=== PATIENT | female | born 1995 | race Hispanic/Latino ===

== ENCOUNTER 2018-09-30 18:32 | Emergency (ER) | payer BC, MEDICAID ==
--- NOTE | 2018-09-30 19:02 | Emergency Department Report ---
Blank Doc - Documentation Documentation: Hx/o autism right flank pain times 3 days. Hx/o depression ADAD ,bipolar, ocd .
[2018-09-30] MEDS ORDERED: NACL 0.9% 1000 ML 1,000 ML IV ONE (19:45)
[2018-09-30] MEDS ORDERED: MORPHINE IV ONE (19:46)
[2018-09-30] MEDS ORDERED: ZOFRAN IV ONE (19:46)
[2018-09-30 20:21] LABS: Basophils % (Auto) 0.2 % (0.0-1.8); Eosinophils % (Auto) 0.2 % (0.0-4.3); Hematocrit 36.9 % (30.3-42.9); Hemoglobin 12.5 gm/dl (10.1-14.3); Lymphocytes # (Auto) 1.5 K/mm3 (1.2-5.4); Lymphocytes % (Auto) 17.1 % (13.4-35.0); Mean Corpuscular HGB Conc 34 % (30-34); Mean Corpuscular Volume 87 fl (79-97); Monocytes # (Auto) 1.3 K/mm3 (0.0-0.8); Monocytes % (Auto) 14.9 % (0.0-7.3); Platelet Count 175 K/mm3 (140-440); Red Blood Count 4.24 M/mm3 (3.65-5.03); Red Cell Distribution Width 14.2 % (13.2-15.2)
[2018-09-30 20:42] LABS: Alanine Aminotransferase 8 units/L (7-56); Albumin 3.8 g/dL (3.9-5); BUN/Creatinine Ratio 10; Blood Urea Nitrogen 9 mg/dL (7-17); Calcium 9.6 mg/dL (8.4-10.2); Hemolysis Index 74
[2018-09-30 22:19] LABS: Bilirubin,Urine NEG (Negative); Blood,Urine SM (Negative); Color,Urine Yellow (Yellow); Mucus,Urine FEW /HPF
[2018-09-30 22:22] LABS: HCG Qualitative,Urine Negative (Negative)
[2018-09-30] MEDS ORDERED: TORADOL IV ONE (22:32)
--- NOTE | 2018-09-30 23:41 | Cat Scan Report ---
PROCEDURE: CT ABDOMEN PELVIS W CON TECHNIQUE: Computerized axial tomography of the abdomen and pelvis was performed without intravenous contrast. This study is performed without intravascular contrast material and its sensitivity for ab dominal and pelvic pathology, including neoplasms, inflammation, abscess, free fluid, thrombosis, art erial dissection and infarction, is reduced compared with a contrast enhanced study. CT DOSE LENGTH PRODUCT: 572.4 mGycm HISTORY: Abdominal pain COMPARISONS: None . FINDINGS: Lower Lung root: No focal abnormalities seen. Upper Abdomen: The liver, gallbladder, the adrenal glands, the pancreas and spleen are unremarkable. Kidneys, Ureters and Urinary bladder: There is moderate right-sided hydronephrosis secondary to a ca lculus in the proximal third of the right ureter measuring 3.3 x 3.3 mm seen on axial image 98 series 2, coronal reconstruction image 63 series 602. The obstruction appears to be fairly high-grade. Ther e is mild decreased enhancement of the right kidney compared to the left kidney. There is a small gera unt of fluid in the right perinephric space. The kidneys, the ureters and urinary bladder otherwise a re unremarkable. Retroperitoneum: Abdominal aorta appears normal. Nonspecific subcentimeter lymph nodes are seen in the retroperitoneum. No pathologically enlarged ly mph nodes are identified. Bowel: No focal bowel loop abnormalities are seen. No evidence of bowel obstruction. Normal-appearin g appendix is seen in the right lower quadrant. There is no free intraperitoneal gas. Small amount of nonspecific free fluid is present in the cul-de-sac. Reproductive organs: Uterus is deviated to the right of midline. No abnormal adnexal masses are iden tified. Other: No acute bone abnormalities are seen. IMPRESSION: Moderate right-sided hydronephrosis secondary to a calculus in the proximal third of the right ureter as described. Please see above comments. Small amount of nonspecific free fluid is seen in the cul-de-sac. This document is electronically signed by Roby Arnold MD., Sep 30 2018 11:39:34 PM ET
[2018-10-01] MEDS ORDERED: FLOMAX PO ONE (00:27)
--- NOTE | 2018-10-01 00:33 | Emergency Department Report ---
ED Abdominal Pain HPI - General Chief Complaint: Abdominal Pain Stated Complaint: NAUSEA/VOMITTING/POSS KIDNEY STONES Time Seen by Provider: 09/30/18 20:35 Source: patient Mode of arrival: Wheelchair Limitations: No Limitations - History of Present Illness Initial Comments: Patient is a 23-year-old white female with a history of autism, bipolar disorder and depression who presents to the ED with complaint of acute onset persistent severe right flank pain that radiates to the suprapubic area with nausea and vomiting for the last 3 days. Patient states that she has not been able to keep anything down due to intractable nausea and vomiting. Patient also complains of intermittent hematuria with urinary frequency and urgency. Patient denies fever, chills, vaginal bleeding, diarrhea, low back pain, dizziness, chest pain, headache, vaginal discharge, or shortness of breath. MD Complaint: abdominal pain, flank pain (RIGHT), other (Nausea and vomiting) -: Sudden, days(s) (3) Location: suprapubic, R flank Radiation: suprapubic, R flank Migration to: RLQ, suprapubic, R flank Severity: severe Severity scale (0 -10): 8 Quality: cramping, stabbing, sharp Consistency: constant Improves With: nothing Worsens With: nothing Context: other (Spontaneous) Associated Symptoms: nausea, vomiting, hematuria, anorexia. denies: diarrhea, fever, chills, constipation, dysuria, hematemesis, hematochezia, syncope Treatments Prior to Arrival: NSAIDs - Related Data LMP Date: 09/08/18 Previous Rx's Medication Instructions Recorded Last Taken Type HYDROcodone/APAP 5-325 [[place] 1 each PO Q6HR PRN #12 tablet 10/01/18 Unknown Rx 5/325] Ketorolac [Toradol] 10 mg PO Q8H PRN #20 tablet 10/01/18 Unknown Rx Ondansetron [Zofran Odt] 4 mg PO Q6HR #20 tab.rapdis 10/01/18 Unknown Rx Tamsulosin [Flomax] 0.4 mg PO QDAY #7 cap 10/01/18 Unknown Rx Allergies Allergy/AdvReac Type Severity Reaction Status Date / Time No Known Allergies Allergy Verified 09/30/18 18:34 ED Review of Systems ROS: Stated complaint: NAUSEA/VOMITTING/POSS KIDNEY STONES Other details as noted in HPI Comment: All other systems reviewed and negative Constitutional: no symptoms reported, see HPI, malaise. denies: chills, diapho resis, fever Eyes: as per HPI. denies: eye pain, eye discharge, vision change ENT: as per HPI. denies: ear pain, throat pain, dental pain, hearing loss Respiratory: no symptoms reported, see HPI. denies: cough, shortness of breath, wheezing Cardiovascular: as per HPI. denies: chest pain, palpitations, syncope Endocrine: no symptoms reported, see HPI. denies: excessive sweating, flushing, increased hunger, increased thirst Gastrointestinal: as per HPI, abdominal pain, nausea, vomiting. denies: diarrhea, hematochezia Genitourinary: as per HPI, urgency, frequency, hematuria. denies: dysuria, discharge, abnormal menses, dyspareunia Musculoskeletal: as per HPI. denies: back pain, joint swelling, arthralgia, myalgia Skin: as per HPI. denies: rash, lesions, change in color Neurological: as per HPI. denies: headache, numbness, paresthesias, confusion, vertigo Psychiatric: as per HPI, anxiety Hematological/Lymphatic: as per HPI ED Past Medical Hx - Past Medical History Hx Psychiatric Treatment: Yes Additional medical history: bipolar. autism. ADHD. OCD - Surgical History Additional Surgical History: partial spleenectomy (tumor). left index surgery - Social History Smoking Status: Never Smoker Substance Use Type: None - Medications Home Medications: Home Medications Medication Instructions Recorded Confirmed Last Taken Type HYDROcodone/APAP 5-325 [[place] 1 each PO Q6HR PRN #12 tablet 10/01/18 Unknown Rx 5/325] Ketorolac [Toradol] 10 mg PO Q8H PRN #20 tablet 10/01/18 Unknown Rx Ondansetron [Zofran Odt] 4 mg PO Q6HR #20 tab.rapdis 10/01/18 Unknown Rx Tamsulosin [Flomax] 0.4 mg PO QDAY #7 cap 10/01/18 Unknown Rx ED Physical Exam - General Limitations: No Limitations General appearance: alert, in no apparent distress - Head Head exam: Present: atraumatic, normocephalic, normal inspection - Eye Eye exam: Present: normal appearance, PERRL, EOMI Pupils: Present: normal accommodation - ENT ENT exam: Present: normal exam, mucous membranes dry, mucous membranes moist, TM's normal bilaterally, normal external ear exam - Neck Neck exam: Present: normal inspection, full ROM - Respiratory Respiratory exam: Present: normal lung sounds bilaterally. Absent: respiratory distress, wheezes, rales, chest wall tenderness, accessory muscle use - Cardiovascular Cardiovascular Exam: Present: regular rate, bradycardia, normal heart sounds - GI/Abdominal GI/Abdominal exam: Present: soft, tenderness (Right flank and RLQ area), normal bowel sounds. Absent: distended, guarding, rebound, diminished bowel sounds - Rectal Rectal exam: Present: deferred - Extremities Exam Extremities exam: Present: normal inspection, full ROM, normal capillary refill - Back Exam Back exam: Present: normal inspection. Absent: full ROM, tenderness, CVA tenderness (R), CVA tenderness (L), paraspinal tenderness - Neurological Exam Neurological exam: Present: alert, oriented X3, CN II-XII intact, normal gait, reflexes normal - Psychiatric Psychiatric exam: Present: normal affect - Skin Skin exam: Present: warm, dry, intact, normal color ED Course Vital Signs 09/30/18 09/30/18 20:14 23:27 Temperature 98.1 F Pulse Rate 52 L Respiratory 18 18 Rate Blood Pressure 128/69 O2 Sat by Pulse 99 Oximetry - Reevaluation(s) Reevaluation #1: 10/01/18 00:02 Patient had presented to the ED with complaint of acute onset right flank pain with nausea and vomiting for 3 days. Labs are drawn and patient was treated for pain and nausea and vomiting. Patient received normal saline 1 L IV bolus 1. Abdominal and pelvis CT scan with contrast was also ordered. On reevaluation, patient's pain is well controlled on medications. Lab test results were reviewed and are unremarkable. Abdominal and pelvis CT scan with contrast shows a 3 mm kidney stone on the right proximal UVJ. Patient was treated in the ED with Flomax and patient discharged home with pain medications, antiemetics, Flomax and given a referral to the urologist senior clinical consultant Dr. Gee for follow-up in 3-5 days ED Medical Decision Making - Lab Data Result diagrams: 09/30/18 19:56 09/30/18 19:56 - Radiology Data Radiology results: report reviewed, image reviewed ' 3 mm Kidney stones on proximal right UVJ - Medical Decision Making Patient presented to the ED with complaint of acute onset persistent right flank pain with nausea and vomiting for 3 days. On presentation, labs are drawn and the patient for pain and nausea and vomiting. Abdomen pelvis CT scan with contrast was also ordered. The patient also received normal saline 1 L IV bolus while in the ED. On reevaluation, patient's pain is well controlled. Lab test results were reviewed and are unremarkable including urinalysis. Abdomen p juan manuel CT scan with contrast shows a 3 mm kidney stone in proximal right UVJ. Patient was discharged home on pain medications and Flomax, and referred to the urologist senior clinical consultant Dr. Gee for follow-up in 3-5 days. Patient was advised to return to the ED immediately if symptoms get worse. - Differential Diagnosis Kidney stones, Acute UTI, acute appendicitis, pyelonephnrephritis Critical care attestation.: If time is entered above; I have spent that time in minutes in the direct care of this critically ill patient, excluding procedure time. ED Disposition Clinical Impression: Acute abdominal pain in right flank, Nausea and vomiting in adult, Kidney stone on right side Disposition: TO HOME OR SELFCARE Is pt being admited?: No Does the pt Need Aspirin: No Condition: Stable Instructions: Kidney Stones (ED), Flank Pain (ED), Acute Nausea and Vomiting (ED) Additional Instructions: Take Medications with food, drink plenty of fluids and follow-up with Dr. Gee as advised. Return to the ED immediately if symptoms get worse. Prescriptions: Tamsulosin [Flomax] 0.4 mg PO QDAY #7 cap HYDROcodone/APAP 5-325 [[place] 5/325] 1 each PO Q6HR PRN #12 tablet PRN Reason: Pain Ketorolac [Toradol] 10 mg PO Q8H PRN #20 tablet PRN Reason: Pain Ondansetron [Zofran Odt] 4 mg PO Q6HR #20 tab.rapdis Referrals: URBAN MARTINEZ MD [Primary Care Provider] - 3-5 Days CARTER GEE MD [Staff Physician] - 3-5 Days Time of Disposition: 00:54 Print Language: WELSH
[2018-10-01 01:22] VITALS: BP 98/53
== END 2018-10-01 01:05 | disposition home or self-care (01) ==
LOC: ED 18:32
DX: N20.0 Calculus of kidney (principal); R10.31 Right lower quadrant pain; R11.2 Nausea with vomiting, unspecified; Z90.81 Acquired absence of spleen
CPT/HCPCS: 36415; 74177; 80053; 81001; 81025; 83690; 85025; 96361; 96374; 96375; 99284; J1885; J2270; J2405; J7030; Q9967

== ENCOUNTER 2019-01-09 12:26 | Emergency (ER) | payer BC, MEDICAID ==
[2019-01-09] MEDS ORDERED: PROTONIX IV ONE (12:47)
[2019-01-09] MEDS ORDERED: NACL 0.9% 1000 ML 1,000 ML IV ONE (12:47)
[2019-01-09] MEDS ORDERED: MORPHINE IV ONE (12:47)
[2019-01-09] MEDS ORDERED: ZOFRAN IV ONE (12:48)
--- NOTE | 2019-01-09 12:54 | Emergency Department Report ---
ED Abdominal Pain HPI - General Chief Complaint: Chest Pain Stated Complaint: CHEST PAIN, N/V Time Seen by Provider: 01/09/19 12:39 Source: patient, family, EMS Mode of arrival: Stretcher Limitations: No Limitations - History of Present Illness Initial Comments: This is a 23-year-old female with a history of schizoaffective and bipolar disorder complaining of vomiting and abdominal pain. She states the pain was sharp, started yesterday. It is persistent. It is nonradiating. In the epigastric area and somewhat in the subxiphoid region. It does not radiate and is midline. Patient states that she has a history of a splenectomy for a "tumor". She denies any serious or life-threatening infections in the past. She denies any other surgery. She presents here with her mother. MD Complaint: abdominal pain -: Gradual, days(s) Location: epigastric Radiation: none Migration to: no migration Severity: moderate Quality: sharp Consistency: constant Improves With: nothing Worsens With: nothing Associated Symptoms: nausea, vomiting (vomited material that looked like a "soft drink".). denies: melena, hematuria - Related Data Previous Rx's Medication Instructions Recorded Last Taken Type HYDROcodone/APAP 5-325 [[place] 1 each PO Q6HR PRN #12 tablet 10/01/18 Unknown Rx 5/325] Ketorolac [Toradol] 10 mg PO Q8H PRN #20 tablet 10/01/18 Unknown Rx Ondansetron [Zofran Odt] 4 mg PO Q6HR #20 tab.rapdis 10/01/18 Unknown Rx Tamsulosin [Flomax] 0.4 mg PO QDAY #7 cap 10/01/18 Unknown Rx Lansoprazole [Prevacid] 15 mg PO BID #60 cap 01/09/19 Unknown Rx Allergies Allergy/AdvReac Type Severity Reaction Status Date / Time No Known Allergies Allergy Verified 01/09/19 12:43 ED Review of Systems ROS: Stated complaint: CHEST PAIN, N/V Other details as noted in HPI Constitutional: denies: chills, fever Eyes: denies: eye pain, eye discharge, vision change ENT: denies: ear pain, throat pain Respiratory: denies: cough, shortness of breath, wheezing Cardiovascular: denies: chest pain, palpitations Endocrine: no symptoms reported Gastrointestinal: abdominal pain, nausea, vomiting. denies: diarrhea Genitourinary: denies: urgency, dysuria, discharge Musculoskeletal: denies: back pain, joint swelling, arthralgia Skin: denies: rash, lesions Neurological: denies: headache, weakness, paresthesias Psychiatric: denies: anxiety, depression Hematological/Lymphatic: denies: easy bleeding, easy bruising ED Past Medical Hx - Past Medical History Hx Psychiatric Treatment: Yes Additional medical history: bipolar. autism. ADHD. OCD - Surgical History Additional Surgical History: partial spleenectomy (tumor). left index surgery - Social History Smoking Status: Never Smoker Substance Use Type: None - Medications Home Medications: Home Medications Medication Instructions Recorded Confirmed Last Taken Type HYDROcodone/APAP 5-325 [[place] 1 each PO Q6HR PRN #12 tablet 10/01/18 Unknown Rx 5/325] Ketorolac [Toradol] 10 mg PO Q8H PRN #20 tablet 10/01/18 Unknown Rx Ondansetron [Zofran Odt] 4 mg PO Q6HR #20 tab.rapdis 10/01/18 Unknown Rx Tamsulosin [Flomax] 0.4 mg PO QDAY #7 cap 10/01/18 Unknown Rx Lansoprazole [Prevacid] 15 mg PO BID #60 cap 01/09/19 Unknown Rx ED Physical Exam - General Limitations: No Limitations General appearance: alert, in no apparent distress - Head Head exam: Present: atraumatic, normocephalic - Eye Eye exam: Present: normal appearance. Absent: scleral icterus - ENT ENT exam: Present: mucous membranes moist - Neck Neck exam: Present: normal inspection. Absent: tenderness, meningismus - Respiratory Respiratory exam: Present: normal lung sounds bilaterally. Absent: respiratory distress - Cardiovascular Cardiovascular Exam: Present: regular rate, normal rhythm. Absent: systolic murmur, diastolic murmur, rubs, gallop - GI/Abdominal GI/Abdominal exam: Present: soft, normal bowel sounds. Absent: distended, tenderness, guarding, rebound, rigid - Extremities Exam Extremities exam: Present: normal inspection - Back Exam Back exam: Present: normal inspection - Neurological Exam Neurological exam: Present: alert, oriented X3, CN II-XII intact. Absent: motor sensory deficit - Psychiatric Psychiatric exam: Present: agitated, anxious - Skin Skin exam: Present: warm, dry, intact, normal color. Absent: rash ED Course Vital Signs 01/09/19 01/09/19 01/09/19 12:30 12:32 12:45 Temperature 98.7 F Pulse Rate 67 64 78 Respiratory 15 18 21 Rate Blood Pressure 116/83 Blood Pressure 116/83 [Left] O2 Sat by Pulse 100 100 100 Oximetry 01/09/19 13:00 Temperature Pulse Rate 67 Respiratory 23 Rate Blood Pressure 120/79 Blood Pressure [Left] O2 Sat by Pulse 100 Oximetry - Reevaluation(s) Reevaluation #1: Patient improved. Patient looks well. Laboratory database is essentially within normal limits. She will be placed on a proton inhibitor and refer her to GI. 01/09/19 13:57 ED Medical Decision Making - Lab Data Result diagrams: 01/09/19 12:53 01/09/19 12:53 Critical care attestation.: If time is entered above; I have spent that time in minutes in the direct care of this critically ill patient, excluding procedure time. ED Disposition Clinical Impression: Abdominal pain Qualifiers: Abdominal location: upper abdomen, unspecified Qualified Code(s): R10.10 - Upper abdominal pain, unspecified Gastritis Qualifiers: Gastritis type: unspecified gastritis Chronicity: acute Gastritis bleeding: presence of bleeding unspecified Qualified Code(s): K29.00 - Acute gastritis without bleeding Disposition: DC-01 TO HOME OR SELFCARE Is pt being admited?: No Does the pt Need Aspirin: No Condition: Stable Instructions: Acute Abdominal Pain (ED), Gastritis (ED) Additional Instructions: Avoid stomach irritants. Further evaluation with a GI specialist as recommended. Rx lansoprazole. Prescriptions: Lansoprazole [Prevacid] 15 mg PO BID #60 cap Referrals: URBAN MARTINEZ MD [Primary Care Provider] - 3-5 Days [facility] [Provider Group] - 3-5 Days Time of Disposition: 13:58
[2019-01-09 13:22] LABS: Basophils % (Auto) 0.4 % (0.0-1.8); Eosinophils % (Auto) 0.1 % (0.0-4.3); Hematocrit 36.5 % (30.3-42.9); Hemoglobin 12.3 gm/dl (10.1-14.3); Lymphocytes # (Auto) 0.9 K/mm3 (1.2-5.4); Lymphocytes % (Auto) 12.7 % (13.4-35.0); Mean Corpuscular HGB Conc 34 % (30-34); Mean Corpuscular Volume 84 fl (79-97); Monocytes # (Auto) 0.6 K/mm3 (0.0-0.8); Monocytes % (Auto) 9.1 % (0.0-7.3); Platelet Count 282 K/mm3 (140-440); Red Blood Count 4.38 M/mm3 (3.65-5.03); Red Cell Distribution Width 15.3 % (13.2-15.2)
[2019-01-09 13:34] LABS: Alanine Aminotransferase 13 units/L (7-56); Albumin 4.2 g/dL (3.9-5); BUN/Creatinine Ratio 30; Blood Urea Nitrogen 12 mg/dL (7-17); Calcium 9.3 mg/dL (8.4-10.2); Hemolysis Index 5
[2019-01-09 13:36] LABS: Bilirubin,Direct < 0.2 mg/dL (0-0.2)
[2019-01-09 13:39] LABS: INR 1.05 (0.87-1.13)
[2019-01-09] MEDS ORDERED: MORPHINE ONE (13:41)
[2019-01-09 13:56] LABS: Bilirubin,Urine NEG (Negative); Blood,Urine NEG (Negative); Color,Urine Yellow (Yellow); Mucus,Urine 3+ /HPF
[2019-01-09 14:46] VITALS: BP 114/76
== END 2019-01-09 14:54 | disposition home or self-care (01) ==
LOC: ED 12:26
DX: K29.70 Gastritis, unspecified, without bleeding (principal); F31.9 Bipolar disorder, unspecified; F25.9 Schizoaffective disorder, unspecified; F90.9 Attention-deficit hyperactivity disorder, unspecified type; F84.0 Autistic disorder; Z90.81 Acquired absence of spleen; Z79.899 Other long term (current) drug therapy
CPT/HCPCS: 36415; 80048; 80076; 81001; 83690; 84703; 85025; 85610; 93005; 93010; 96374; 96375; 99284; C9113; J2270; J2405; J7030

== ENCOUNTER 2019-04-13 00:45 | Emergency (ER) | payer BC, MEDICAID ==
[2019-04-13] MEDS ORDERED: HYDROcodone/ACETAMINOPHEN 5-325 MG TAB ONE (02:20)
[2019-04-13] MEDS ORDERED: predniSONE 20 MG TAB ONE (02:20)
[2019-04-13] MEDS ORDERED: IBUPROFEN 400 MG TAB PO ONE (02:20)
[2019-04-13] MEDS ORDERED: LIDOCAINE-MPF (1%) 10 MG/1 ML VIAL 5 ML ONE (02:20)
[2019-04-13] MEDS ORDERED: CLINDAMYCIN 300 MG CAP ONE (02:32)
--- NOTE | 2019-04-13 03:59 | Emergency Department Report ---
ED General Adult HPI - General Chief complaint: Skin/Abscess/Foreign Body Stated complaint: right cheek swollen painful erythematous rash Source: patient, family (mother) Mode of arrival: Ambulatory Limitations: No Limitations - History of Present Illness Initial comments: Patient is a 23-year-old white female with a history of chronic depression, bipolar disorder and asthma presents to the ED with complaint of acute onset persistent painful swollen erythematous maculopapular rash on right cheek for the last 5 days. Patient also complains of painful swollen right mandibular gums with premolar and molar toothaches for the last 2 weeks. Patient states that she completed a course of oral antibiotics, amoxicillin about 7 days ago for the dental abscess. Patient states that her pain has worsened in the last 5 days. Patient denies fever, chills, nausea, vomiting, dizziness, headache, chest pain, shortness of breath, sore throat, cough or nasal and sinus congestion and change in vision. MD Complaint: right cheek abscess; dental and jaw pain -: Sudden, week(s) (2) Location: face (right cheek), mouth (right premolar and molar toothache with swollen gums) Radiation: non-radiation Quality: aching, sharp, constant Consistency: constant Improves with: none Worsens with: eating Associated Symptoms: denies other symptoms, loss of appetite, malaise. denies: confusion, chest pain, cough, diaphoresis, fever/chills, headaches, nausea/vomiting, rash, seizure, shortness of breath, syncope, weakness, other Treatments Prior to Arrival: NSAID - Related Data Home Medications Medication Instructions Recorded Confirmed Last Taken Abilify 20 mg PO QAM 01/09/19 01/09/19 01/08/19 Cetirizine HCl [Zyrtec 10mg tab] 10 mg PO DAILY 01/09/19 01/09/19 01/08/19 Sertraline [Zoloft] 50 mg PO QDAY 01/09/19 01/09/19 01/08/19 Singulair 10 mg PO DAILY 01/09/19 01/09/19 01/08/19 Synthroid 50 mg PO QHS 01/09/19 01/09/19 01/08/19 traZODone [Desyrel] 100 mg PO QHS PRN 01/09/19 01/09/19 01/08/19 Previous Rx's Medication Instructions Recorded Last Taken Type Acetaminophen/Codeine [Tylenol 1 tab PO Q6H PRN #12 tab 04/13/19 Unknown Rx /Codeine # 3 tab] Clindamycin [Clindamycin CAP] 300 mg PO Q6HR #80 capsule 04/13/19 Unknown Rx Ketorolac [Toradol] 10 mg PO Q8H PRN #20 tablet 04/13/19 Unknown Rx Ondansetron [Zofran Odt] 4 mg PO Q6HR PRN #15 tab.rapdis 04/13/19 Unknown Rx Allergies Allergy/AdvReac Type Severity Reaction Status Date / Time No Known Allergies Allergy Verified 01/09/19 12:43 ED Review of Systems ROS: Stated complaint: Other details as noted in HPI Constitutional: denies: chills, fever Eyes: denies: eye pain, eye discharge, vision change ENT: dental pain, other (swollen right mandibular gums with pain). denies: ear pain, throat pain Respiratory: denies: cough, orthopnea, shortness of breath, SOB with exertion, SOB at rest, wheezing Cardiovascular: denies: chest pain, palpitations Endocrine: no symptoms reported Gastrointestinal: denies: abdominal pain, nausea, vomiting, diarrhea Genitourinary: denies: urgency, dysuria, discharge Musculoskeletal: denies: back pain, joint swelling, arthralgia Skin: rash (swollen erythematous painful rash on right cheek). denies: lesions Neurological: denies: headache, weakness, paresthesias Psychiatric: denies: anxiety, depression Hematological/Lymphatic: denies: easy bleeding, easy bruising ED Past Medical Hx - Past Medical History Hx Psychiatric Treatment: Yes Additional medical history: Bipolar. autism. ADHD. OCD. MDD. Anxiety. Hyperparathyroidism. ODD - Surgical History Additional Surgical History: partial spleenectomy (tumor) at age 4. left index surgery - Social History Smoking Status: Never Smoker Substance Use Type: None - Medications Home Medications: Home Medications Medication Instructions Recorded Confirmed Last Taken Type Abilify 20 mg PO QAM 01/09/19 01/09/19 01/08/19 History Cetirizine HCl [Zyrtec 10mg tab] 10 mg PO DAILY 01/09/19 01/09/19 01/08/19 History Sertraline [Zoloft] 50 mg PO QDAY 01/09/19 01/09/1901/08/19 History Singulair 10 mg PO DAILY 01/09/19 01/09/19 01/08/19 History Synthroid 50 mg PO QHS 01/09/19 01/09/19 01/08/19 History traZODone [Desyrel] 100 mg PO QHS PRN 01/09/19 01/09/19 01/08/19 History Acetaminophen/Codeine [Tylenol 1 tab PO Q6H PRN #12 tab 04/13/19 Unknown Rx /Codeine # 3 tab] Clindamycin [Clindamycin CAP] 300 mg PO Q6HR #80 capsule 04/13/19 Unknown Rx Ketorolac [Toradol] 10 mg PO Q8H PRN #20 tablet 04/13/19 Unknown Rx Ondansetron [Zofran Odt] 4 mg PO Q6HR PRN #15 tab.rapdis 04/13/19 Unknown Rx ED Physical Exam - General General appearance: alert, in no apparent distress - Head Head exam: Present: atraumatic, normocephalic, normal inspection - Eye Eye exam: Present: normal appearance, PERRL, EOMI Pupils: Present: normal accommodation - ENT ENT exam: Present: mucous membranes moist, TM's normal bilaterally, normal external ear exam, other (Swollen erythematous fluctuant maculopapular rash on right cheek; swollen tender right mandibular gingiva with tender premolar and molar teeth) - Neck Neck exam: Present: normal inspection, full ROM, lymphadenopathy - Respiratory Respiratory exam: Present: normal lung sounds bilaterally. Absent: respiratory distress, wheezes, rhonchi, stridor, chest wall tenderness, accessory muscle us e, decreased breath sounds - Cardiovascular Cardiovascular Exam: Present: regular rate, normal rhythm, normal heart sounds. Absent: systolic murmur, diastolic murmur, rubs, gallop - GI/Abdominal GI/Abdominal exam: Present: soft, normal bowel sounds. Absent: tenderness, guarding, hyperactive bowel sounds, hypoactive bowel sounds, mass - Extremities Exam Extremities exam: Present: normal inspection, full ROM, normal capillary refill - Back Exam Back exam: Present: normal inspection, full ROM. Absent: tenderness, CVA tenderness (L), muscle spasm, paraspinal tenderness, vertebral tenderness - Neurological Exam Neurological exam: Present: alert, oriented X3, CN II-XII intact, normal gait, reflexes normal - Psychiatric Psychiatric exam: Present: normal affect, normal mood - Skin Skin exam: Present: warm, dry, intact, normal color, rash (erythematous swollen severely tender maculopapular fluctuant rash on right cheek) - I & D Right Cheek Type of Procedure: Simple Site: 4 cm x 4 cm Blade Size: 11 I & D Procedure: betadine prep, sterile drapes applied, sterile dressing applied Progress: The site was cleaned thoroughly and anesthetized with lidocaine 1% solution. Incision was made and copious amount of purulent discharge was expressed from the site. The wound was cleaned thoroughly and debrided and an iodoform packing applied. The wound was then dressed appropriately with 4 x 4 gauze and Tegaderm. Patient alert to the procedure well. Patient was discharged home on pain medications and antibiotics and advised to follow-up with her primary Physician in 7-10 days for reevaluation. Patient was otherwise advised to return to the ED in 2 days for wound recheck and packing removal. ED Medical Decision Making - Medical Decision Making This is a 23-year-old white female who presented to the ED with painful swollen erythematous maculopapular rash on right cheek, and also painful premolar and m olar toothaches with swollen right mandibular. In the ED, patient is alert and oriented 3 and is not in distress with normal vital signs. Patient was treated for pain in the ED, also given oral antibiotics on the erythematous rash was incised and drained per protocol and the patient tolerated the procedure well. Patient was discharged home on antibiotics and pain medications and advised to return to the ED in 2 days for wound recheck and packing removal. Patient was also advised to follow-up with her primary care physician in 7-10 days for reevaluation. - Differential Diagnosis cellulitis; gingivitis; dental abscess; dental caries; folliculitis Critical care attestation.: If time is entered above; I have spent that time in minutes in the direct care of this critically ill patient, excluding procedure time. ED Disposition Clinical Impression: Cellulitis and abscess of face, Dental abscess, Acute gingivitis Disposition: TO HOME OR SELFCARE Is pt being admited?: No Does the pt Need Aspirin: No Condition: Stable Instructions: Cellulitis (ED), Gingivitis (ED), Dental Abscess (ED) Additional Instructions: Take medications with food, drink plenty fluids and follow-up with your primary care physician in 7-10 days for reevaluation. Return to the ED immediately if symptoms get worse. Prescriptions: Clindamycin [Clindamycin CAP] 300 mg PO Q6HR #80 capsule Ketorolac [Toradol] 10 mg PO Q8H PRN #20 tablet PRN Reason: Pain Acetaminophen/Codeine [Tylenol /Codeine # 3 tab] 1 tab PO Q6H PRN #12 tab PRN Reason: Pain , Severe (7-10) Ondansetron [Zofran Odt] 4 mg PO Q6HR PRN #15 tab.rapdis PRN Reason: Nausea Referrals: [facility] [Outside] - 3-5 Days THAD LUJAN MD [Staff Physician] - 3-5 Days Time of Disposition: 03:59 Print Language: GREENLANDIC
== END 2019-04-13 04:31 | disposition home or self-care (01) ==
LOC: ED 00:45
DX: L02.01 Cutaneous abscess of face (principal); K04.7 Periapical abscess without sinus; K05.00 Acute gingivitis, plaque induced
CPT/HCPCS: 10060; 99281; J7512

== ENCOUNTER 2019-04-15 17:13 | Emergency (ER) | payer BC, MEDICAID ==
--- NOTE | 2019-04-15 22:06 | Emergency Department Report ---
- General Chief Complaint: Laceration/Recheck/Suture Stated Complaint: WOUND CHECK Time Seen by Provider: 04/15/19 21:04 Source: patient Mode of arrival: Ambulatory Limitations: No Limitations - Related Data Home Medications Medication Instructions Recorded Confirmed Last Taken Abilify 20 mg PO QAM 01/09/19 01/09/19 01/08/19 Cetirizine HCl [Zyrtec 10mg tab] 10 mg PO DAILY 01/09/19 01/09/19 01/08/19 Sertraline [Zoloft] 50 mg PO QDAY 01/09/19 01/09/19 01/08/19 Singulair 10 mg PO DAILY 01/09/19 01/09/19 01/08/19 Synthroid 50 mg PO QHS 01/09/19 01/09/19 01/08/19 traZODone [Desyrel] 100 mg PO QHS PRN 01/09/19 01/09/19 01/08/19 Previous Rx's Medication Instructions Recorded Last Taken Type Acetaminophen/Codeine [Tylenol 1 tab PO Q6H PRN #12 tab 04/13/19 Unknown Rx /Codeine # 3 tab] Clindamycin [Clindamycin CAP] 300 mg PO Q6HR #80 capsule 04/13/19 Unknown Rx Ketorolac [Toradol] 10 mg PO Q8H PRN #20 tablet 04/13/19 Unknown Rx Ondansetron [Zofran Odt] 4 mg PO Q6HR PRN #15 tab.rapdis 04/13/19 Unknown Rx Chlorhexidine Gluconate [Hibiclens] 10 ml TP BID #240 liquid 04/15/19 Unknown Rx Mupirocin [Bactroban 2%] 15 applic TP TID #15 gm 04/15/19 Unknown Rx Allergies Allergy/AdvReac Type Severity Reaction Status Date / Time No Known Allergies Allergy Verified 01/09/19 12:43 ED Review of Systems ROS: Stated complaint: WOUND CHECK Other details as noted in HPI Comment: All other systems reviewed and negative ED Past Medical Hx - Past Medical History Previous Medical History?: Yes Hx Psychiatric Treatment: Yes Additional medical history: Bipolar. autism. ADHD. OCD. MDD. Anxiety. Hyperparathyroidism. ODD - Surgical History Past Surgical History?: Yes Additional Surgical History: partial spleenectomy (tumor) at age 4. left index surgery - Social History Smoking Status: Never Smoker - Medications Home Medications: Home Medications Medication Instructions Recorded Confirmed Last Taken Type Abilify 20 mg PO QAM 01/09/19 01/09/19 01/08/19 History Cetirizine HCl [Zyrtec 10mg tab] 10 mg PO DAILY 01/09/19 01/09/19 01/08/19 History Sertraline [Zoloft] 50 mg PO QDAY 01/09/19 01/09/19 01/08/19 History Singulair 10 mg PO DAILY 01/09/19 01/09/19 01/08/19 History Synthroid 50 mg PO QHS 01/09/19 01/09/19 01/08/19 History traZODone [Desyrel] 100 mg PO QHS PRN 01/09/19 01/09/19 01/08/19 History Acetaminophen/Codeine [Tylenol 1 tab PO Q6H PRN #12 tab 04/13/19 Unknown Rx /Codeine # 3 tab] Clindamycin [Clindamycin CAP] 300 mg PO Q6HR #80 capsule 04/13/19 Unknown Rx Ketorolac [Toradol] 10 mg PO Q8H PRN #20 tablet 04/13/19 Unknown Rx Ondansetron [Zofran Odt] 4 mg PO Q6HR PRN #15 tab.rapdis 04/13/19 Unknown Rx Chlorhexidine Gluconate [Hibiclens] 10 ml TP BID #240 liquid 04/15/19 Unknown Rx Mupirocin [Bactroban 2%] 15 applic TP TID #15 gm 04/15/19 Unknown Rx ED Physical Exam - General Limitations: No Limitations - Head Head exam: Present: other (abscess packed to the right cheek with a white gauze like material local redness is noted moderate purulent drainage was evacuated from the wound) ED Course Vital Signs 04/15/19 18:58 Temperature 98.2 F Pulse Rate 80 Respiratory 17 Rate Blood Pressure 115/59 O2 Sat by Pulse 100 Oximetry ED Medical Decision Making - Medical Decision Making 23-year-old female status post incision and drainage to her right cheek with gauze packing. Packing was removed there was moderate drainage wound was cleaned and irrigated. As Patient and mom about proper wound care and the need for follow-up with the wound care clinic. She'll be started on some anti- microbial soap and ointment to car worker helper her oral entire body aches for the wound care. Appropriate handwashing technique was was discussed with them as well. She didn't advise to return to emergency department should she experience any fever swelling or worsening pain to the incision and drainage site. She's been advised to call the emergency department if she is unsure of what to do or she is unsure of a possible associated symptom. Critical care attestation.: If time is entered above; I have spent that time in minutes in the direct care of this critically ill patient, excluding procedure time. ED Disposition Clinical Impression: Abscess, Wound abscess Disposition: - TO HOME OR SELFCARE Is pt being admited?: No Does the pt Need Aspirin: No Condition: Stable Instructions: Incision and Drainage (ED), Acute Wound Care (ED), Abscess Incision and Drainage (ED) Prescriptions: Mupirocin [Bactroban 2%] 15 applic TP TID #15 gm Chlorhexidine Gluconate [Hibiclens] 10 ml TP BID #240 liquid Referrals: [facility] [Outside] - 24 Hours (Please keep your wound care appointment tomorrow)
[2019-04-15 22:41] VITALS: BP 116/79
== END 2019-04-15 23:02 | disposition home or self-care (01) ==
LOC: ED 17:13
DX: L02.01 Cutaneous abscess of face (principal); F31.9 Bipolar disorder, unspecified; F84.0 Autistic disorder; F41.9 Anxiety disorder, unspecified; E21.3 Hyperparathyroidism, unspecified; Z90.81 Acquired absence of spleen; Z79.899 Other long term (current) drug therapy
CPT/HCPCS: 99282

== ENCOUNTER 2019-04-18 09:20 | Emergency (ER) | payer BC, MEDICAID ==
[2019-04-18 09:43] VITALS: BP 107/60
--- NOTE | 2019-04-18 11:28 | Emergency Department Report ---
HPI - General Chief Complaint: Skin/Abscess/Foreign Body Time Seen by Provider: 04/18/19 10:59 - HPI HPI: 23-year-old female presents to the emergency department with her mother for reevaluation of a right lower face abscess about the level of her mandible. The patient has been seen here twice before for this abscess and had an incision and drainage, packing placed and then removed, and has been placed on antibiotics which she has been taking compliantly. During her last visit she was given some Hibiclens. The area is still draining but they say that it has gone down in size, the pain has decreased substantially and there is no fever. They went to see the primary care physician, Dr. Steiner, who allegedly said that "he did not want to touch it since he did not cut it." The patient has an appointment with the wound care clinic on , in 3 days. She has a past medical history of bipolar disorder, autism, ADHD, ODD. ED Past Medical Hx - Past Medical History Previous Medical History?: Yes Hx Psychiatric Treatment: Yes Additional medical history: Bipolar. autism. ADHD. OCD. MDD. Anxiety. Hyperparathyroidism. ODD - Surgical History Past Surgical History?: Yes Additional Surgical History: partial spleenectomy (tumor) at age 4. left index surgery - Social History Smoking Status: Never Smoker Substance Use Type: None - Medications Home Medications: Home Medications Medication Instructions Recorded Confirmed Last Taken Type Abilify 20 mg PO QAM 01/09/19 01/09/19 01/08/19 History Cetirizine HCl [Zyrtec 10mg tab] 10 mg PO DAILY 01/09/19 01/09/19 01/08/19 History Sertraline [Zoloft] 50 mg PO QDAY 01/09/19 01/09/19 01/08/19 History Singulair 10 mg PO DAILY 01/09/19 01/09/19 01/08/19 History Synthroid 50 mg PO QHS 01/09/19 01/09/19 01/08/19 History traZODone [Desyrel] 100 mg PO QHS PRN 01/09/19 01/09/19 01/08/19 History Acetaminophen/Codeine [Tylenol 1 tab PO Q6H PRN #12 tab 04/13/19 Unknown Rx /Codeine # 3 tab] Clindamycin [Clindamycin CAP] 300 mg PO Q6HR #80 capsule 04/13/19 Unknown Rx Ketorolac [Toradol] 10 mg PO Q8H PRN #20 tablet 04/13/19 Unknown Rx Ondansetron [Zofran Odt] 4 mg PO Q6HR PRN #15 tab.rapdis 04/13/19 Unknown Rx Chlorhexidine Gluconate [Hibiclens] 10 ml TP BID #240 liquid 04/15/19 Unknown Rx Mupirocin [Bactroban 2%] 15 applic TP TID #15 gm 04/15/19 Unknown Rx ED Review of Systems ROS: Stated complaint: TOOTHACHE Other details as noted in HPI Constitutional: denies: chills, fever ENT: denies: throat pain Skin: lesions. denies: pruritus Neurological: denies: headache Physical Exam - Physical Exam Vital Signs: Vital Signs 04/18/19 09:42 Temperature 97.8 F Pulse Rate 82 Respiratory 18 Rate Blood Pressure 107/60 [Right] O2 Sat by Pulse 99 Oximetry Physical Exam: GENERAL: The patient is well-developed well-nourished. HENT: Normocephalic. Atraumatic. Patient has moist mucous membranes. EYES: Extraocular motions are intact. NECK: Supple. Trachea is midline. ABDOMEN: There is no abdominal distention. SKIN: There is a area of induration to the right lower face along the line of the mandible that appears consistent with a recent abscess. There is a central opening but no visible bleeding or drainage. No fluctuance. No surrounding erythema. NEURO: The patient is awake, alert, and cooperative. The patient has no focal neurologic deficits. Normal speech. MUSCULOSKELETAL: There is no tenderness or deformity. There is no limitation range of motion. There is no evidence of acute injury. ED Course Vital Signs 04/18/19 09:42 Temperature 97.8 F Pulse Rate 82 Respiratory 18 Rate Blood Pressure 107/60 [Right] O2 Sat by Pulse 99 Oximetry ED Medical Decision Making - Medical Decision Making This patient presented for a wound check of this facial cellulitis and abscess that she has been here for 2 times previously. She is on clindamycin and still has about 5 or 6 days left. At this time the wound appears to be healing. There is some induration but no fluctuance. There is no surrounding erythema to show any current cellulitis. Mom says that there is still some drainage so they have been encouraged to use a warm compress. Otherwise they will use soap and water and the Hibiclens. They have an appointment with the wound care clinic on , and 3 days. Vital signs stable including being afebrile. They will return to the ER with any worsening of her symptoms or any acute distress. - Differential Diagnosis abscess, cellulitis, cyst, dermatitis Critical Care Time: No Critical care attestation.: If time is entered above; I have spent that time in minutes in the direct care of this critically ill patient, excluding procedure time. ED Disposition Clinical Impression: Wound abscess Disposition: DC- TO HOME OR SELFCARE Is pt being admited?: No Condition: Stable Instructions: Abscess (ED) Additional Instructions: Please follow-up with the wound care clinic on as previously scheduled. Continue to clean the area with soap and water and then make sure it remains dry. You can use warm compresses to try and express any further infection from the area. Return to the emergency Department with any worsening of her symptoms including any increased swelling, increased pain, development of fever, surrounding redness, or with any acute distress. Continue taking the antibiotics as prescribed. Referrals: [facility] [Outside] - 04/21/19 Forms: Accompanied Note, Work/School Release Form(ED) Time of Disposition: 11:28
== END 2019-04-18 11:36 | disposition home or self-care (01) ==
LOC: ED 09:20
DX: L02.01 Cutaneous abscess of face (principal); L03.211 Cellulitis of face; F31.9 Bipolar disorder, unspecified; F84.0 Autistic disorder; F90.9 Attention-deficit hyperactivity disorder, unspecified type; Z98.890 Other specified postprocedural states; Z79.899 Other long term (current) drug therapy

== ENCOUNTER 2019-04-26 13:02 | Outpatient (CLI) | payer BC, MEDICAID ==
[2019-04-26] MEDS ORDERED: LIDOCAINE (4%) 40 MG/ML TOPICAL SOLN 50 ML BOTTLE TP ONE (14:00)
[2019-04-26] MEDS ORDERED: SILVER NITRATE APPLICATOR 1 EA TP ONE (14:00)
== END 2019-04-26 13:03 | disposition home or self-care (01) ==
LOC: WOUND 13:02
PROVIDERS: ATTEND Surgery
DX: L02.01 Cutaneous abscess of face (principal); E03.9 Hypothyroidism, unspecified; F31.9 Bipolar disorder, unspecified; F42.9 Obsessive-compulsive disorder, unspecified; F90.9 Attention-deficit hyperactivity disorder, unspecified type; F20.9 Schizophrenia, unspecified; F84.0 Autistic disorder
CPT/HCPCS: 99214; G0463

== ENCOUNTER 2019-11-13 13:23 | Emergency (ER) | payer BC, MEDICAID ==
[2019-11-13 13:27] VITALS: BP 106/68
--- NOTE | 2019-11-13 14:18 | Emergency Department Report ---
Chief Complaint: Psych Stated Complaint: GRETCHEN PAUL Time Seen by Provider: 11/13/19 14:11 - HPI History of Present Illness: pt presents for a "psych evaluation" states she does not want to do what she is told at the place she lives at she denies any SI she denies any HI she denies any tobacco, ETOH use, or drug use she denies any auditory or visual hallucinations she lives at her great grandmothers home she states she wants to live at home and states she wants to go to some outpatient classes Vitals are normal Patient is alert and oriented x4, she maintains good eye contact, she answers questions appropriately, she has appropriate mood and affect which are congruent Patient has no SI, no HI, no signs of acute psychosis She does not meet inpatient psych protocol at this time Patient given multiple resources and handouts that were made by the mental health personnel Medical screening examination performed and there is no threat to life or limb at this time Discussed in detail with patient strict return precautions Patient given the appropriate resources - Exam Vital Signs: Vital Signs 11/13/19 13:26 Temperature 98.1 F Pulse Rate 78 Respiratory 12 Rate Blood Pressure 106/68 O2 Sat by Pulse 98 Oximetry MSE screening note: Focused history and physical exam performed. ED Disposition for MSE Clinical Impression: Encounter for medical screening examination Disposition: MED SCREENING EXAM-LEFT Is pt being admited?: No Does the pt Need Aspirin: No Condition: Stable Additional Instructions: please follow up with one of the resources provided. return to the emergency room for any new or worsening symptoms. please return immediately or call 911 if begin feeling thoughts of wanting to hurt yourself or others. Referrals: [facility] [Outside] - 2-3 Days Time of Disposition: 14:17 Print Language: OCCITAN
== END 2019-11-13 14:52 | disposition left against medical advice (07) ==
LOC: ED 13:23
DX: Z04.6 Encounter for general psychiatric examination, requested by authority (principal); Z53.21 Procedure and treatment not carried out due to patient leaving prior to being seen by health care provider